=== PATIENT | male | born 1945 | race Caucasian/White ===

== ENCOUNTER → 2017-02-01 | Outpatient (CLI) | payer MEDICARE, MEDICAID ==
[~2017-02-01] MED LIST: ALDACTONE 25MG25 M1 PO; ALDACTONE 25MG25 MG PO; ALKA-SELTZER HE1 TEF PO; AMBIEN 5MG TABLE5 MG PO; ANTIVERT 25MG25 MG PO; ARTIFICIAL TEAR15 M7 OP; ASPIR-LOW81 MG PO; ASPIRIN E.C. 8181 MG PO; ATIVAN 0.50.5 MG/TAB PO; AUGMENTIN 875 M1 TAB PO; CANA100T PO; CAPOTEN 12.512.5 MG PO; CAPTOPRIL12.5 MG PO; CIPRO 500MG TA500 MG PO; CLOPIDOGREL PO; COLACE 100100 MG/CAP PO; CUBICIN 500MG500 MG IV; DOXYCYCLINE 10100 MG PO; ENALAPRIL5 MG PO; FENTANYL 25 MCG; FLEXERIL 1010 MG/TAB PO; FLEXERIL10 MG PO; GABAPENTIN600 MG PO; HUMALOG100 U/ML SC; IMDUR 60MG60 MG/TAB PO; INSULIN NOVO100 U/ML SC; KLOR-CON 1010 MEQ PO; LAMISIL CREAM30 GM PO; LANTUS100 U/ML SC; LANTUS100 U/ML SQ; LASIX 40MG TABL40 MG PO; LASIX 80MG TABL80 MG PO; LEVAQUIN 750MG750 M1 PO; LEXAPRO 10MG10 MG PO; LIPITOR 80MG80 MG PO; LIPITOR80 MG PO; LIQUID TEARS 1515 ML OP; LOPRESSOR 550 MG/TAB PO; LOPRESSOR100 MG PO; LYRICA 100MG C100 M1 PO; MECLIZINE12.5 MG PO; MERREM IV1 GM IV; MILK OF MA400 MG/52 PO; MINOCYCLIN100 MG/CAP PO; MIRALAX PA17 GM/Dose PO; MYCOSTATIN100000 U/2 TP; MYCOSTATIN100000 U/G TP; NEURONTIN600 MG PO; NEURONTIN600 MG/TAB PO; NEXIUM40 MG PO; NICORETTE GUM2 MG BC; NITRO-DUR0.2 MG/PAT TD; NITRO-DUR0.6 MG/PAT TD; NITROSTAT0.4 MG SL; NORCO 325 MG-101 TAB PO; NORCO 325 MG-51 TAB PO; NOVOLOG 100U100 U/M1 SC; NOVOLOG 100U100 U/M1 SQ; NOVOLOG 100U100 U/ML SQ; NOVOLOG100 U/ML IV; NOVOLOG100 U/ML SQ; NYAMYC100000 U/G TP; OXY IR5 MG PO; OXYCODONE HCL10 MG PO; OXYCONTIN10 MG PO; OXYCONTIN20 MG PO; OXYCONTIN40 MG PO; PERPHENAZINE PO; PERPHENAZINE2 MG PO; PHENERGAN 25 TA25 MG PO; PLAVIX 75MG TAB75 MG PO; PLAVIX300 MG PO; POTASSIUM CH2 MEQ/ML PO; PROTONIX 40MG T40 MG PO; PROTONIX40 MG PO; RANEXA 500MG T500 MG PO; RESTORIL 1515 MG/CAP PO; ROBITUSSIN100 MG/5 M PO; ROCEPHIN 2GM VIAL2 G IJ; ROCEPHIN 2GM VIAL2 G IV; ROXICODONE 55 MG/TAB PO; SENOKOT S 50 MG1 TAB PO; SERTRALINE100 MG PO; SILVADENE CREAM1 TU TP; TEMAZEPAM15 MG PO; TOPROL XL100 MG PO; TRAZODO50 MG PO; TRICOR 48MG48 MG PO; TRULICITY0.75 MG/0. SQ; TYLENOL 500MG500 MG PO; ULTRAM 50MG TAB50 MG PO; ULTRAM50 MG PO; VANCOCIN HCL1 GM IV; VANCOCIN HCL500 MG IV; VANCOMYCIN 11 G/VIA1 IV; VICODIN 5/300 PO; VOLTAREN GEL 1%1 TU TOP; VOLTAREN GEL 1%1 TU TP; ZANAFLEX CAPSULE2 MG PO; ZAROXOLYN5 MG PO; ZESTRIL 5MG5 MG PO; ZOFRAN 4MG T4 MG/TAB PO; ZOLOFT 100MG100 MG PO
[2017-02-01 10:02] VITALS: BP 164/88; PULSE 77
[2017-02-01 11:54] VITALS: BP 121/74; PULSE 112
[2017-02-01 11:55] VITALS: BP 129/71; PULSE 110
[2017-02-01 11:56] VITALS: BP 154/95; PULSE 110
[2017-02-01 11:58] VITALS: BP 149/74; PULSE 108
== END ==
LOC: COL.CARD 09:14
DX: I20.8 Other forms of angina pectoris (principal)
CPT/HCPCS: A9502; J2785